=== PATIENT | female | born 2000 | race Hispanic/Latino ===

== ENCOUNTER 2018-06-18 13:39 | Emergency (ER) | payer SELFPAY ==
[2018-06-18] MEDS ORDERED: Fentanyl 100 MCG/2 ML VIAL ONE (14:10)
[2018-06-18] MEDS ORDERED: Ketorolac Tromethamine 30 MG/ML VIAL ONE (14:11)
[2018-06-18] MEDS ORDERED: Dexamethasone 10 MG/ML VIAL ONE (14:11)
[2018-06-18 14:12] LABS: Hemoglobin 12.9 g/dL (12.0-16.0); Mean Corpuscular HGB CONC 32.7 g/dL (32.0-36.0); Mean Corpuscular Hemoglobin 29.2 pg (25.0-35.0); Mean Corpuscular Volume 89.2 fL (78.0-98.0); Mean Platelet Volume 7.7 fL (7.4-10.4); Platelet Count 320 thou/uL (130-400); RBC Distribution Width 11.8 % (11.5-14.5); Red Blood Cell (RBC) Count 4.41 mill/uL (4.00-5.20); White Blood Cell (WBC) Count 19.6 thou/uL (4.8-10.8)
[2018-06-18] MEDS ORDERED: ISOVUE-370 76%-LOCM 1 ML ONE (14:13)
[2018-06-18 14:21] LABS: BHCG - Serum Negative (NEGATIVE); Pregs Control Background? CLEAR/WHITE (CLR/WHITE); Pregs Control Bar Appear? YES (CONTROL BAR)
[2018-06-18 14:29] LABS: ALT (SGPT) 8 U/L (8-55); AST (SGOT) 10 U/L (5-34); Albumin 3.7 g/dL (3.5-5.0); Alkaline Phosphatase 82 U/L (40-150); Anion Gap 12 mmol/L (10-20); BUN (Urea Nitrogen) 5 mg/dL (7.0-18.7); Bilirubin, Total 0.4 mg/dL (0.2-1.2); Calc. Creatinine Clearance 0 mL/min (70-130); Calcium 8.4 mg/dL (7.8-10.44); Carbon Dioxide 22 mmol/L (22-29); Chloride 104 mmol/L (98-107); Estimated GFR-MDRD Greater than 90; Globulin 3.6 g/dL (2.4-3.5); Glucose 115 mg/dL (70-105); Potassium 3.4 mmol/L (3.5-5.1); Protein, Total 7.3 g/dL (6.0-8.3); Sodium 135 mmol/L (136-145)
[2018-06-18 14:38] LABS: Band 17 % (5-11); Lymphocytes 3 % (28-48); MDiff Complete? YES; Monocytes 7 % (0-4); Neutrophil 73 % (31-61); Platelet Morphology Comment Appears Adequate; RBC Morphology Normal
--- NOTE | 2018-06-18 15:39 | CT ---
CT SOFT TISSUE NECK WITH IV CONTRAST: DATE: 06/18/2018. PROVIDED CLINICAL HISTORY: Peritonsillar abscess. FINDINGS: There is enlargement of the palatine tonsils bilaterally. This is more conspicuous on the right. Th ere is a 1.6 cm greatest dimension x 1.9 cm craniocaudal dimension somewhat circumscribed focus of di minished attenuation within the region of the right palatine tonsil. There is enlargement of the ricardo noid tissue bilaterally. There is mild retropharyngeal fluid density right of midline. There is eff acement of the parapharyngeal fat to a mild degree. There is narrowing of the oropharyngeal airway. The Hounsfield units for the intratonsillar focus of low density on the right are greater than that would be expected for simple fluid. The parotid and submandibular glands appear normal. There are enlarged jugulodigastric lymph nodes b ilaterally, right greater than left. There is no extension of retropharyngeal fluid into the superio r mediastinum. The vascular structures appear normal. The visualized lung apices appear clear. IMPRESSION: Bilateral palatine tonsillitis with 1.9 cm focus of intratonsillar low density within the right palat ine tonsil likely reflecting phlegmon/developing abscess. POS: [facility]
== END 2018-06-18 16:11 | disposition home or self-care (01) ==
LOC: ERS 13:39
DX: J36 Peritonsillar abscess (principal); R00.0 Tachycardia, unspecified
CPT/HCPCS: 36415; 70491; 80053; 84703; 85025; 96361; 96374; 96375; J1100; J1885; J3010; Q9966